=== PATIENT | male | born 1935 | race Caucasian/White ===

== ENCOUNTER → 2018-01-29 15:54 | Outpatient (CLI) | payer MEDICARE, SELFPAY ==
[2018-01-29 16:02] LABS: Bacteria Urine None Seen; WBC Urine None Seen (0-5/HPF)
[2018-01-29 16:46] LABS: Appearance Urine UA CLEAR; Bilirubin Urine UA NEGATIVE (NEGATIVE); Color Urine UA YELLOW; Glucose Urine UA NEGATIVE (Normal); Ketones Urine UA NEGATIVE (NEGATIVE); Leukocyte Esterase Urine UA NEGATIVE (NEGATIVE); Nitrite Urine UA Negative (Negative); Occult Blood Urine UA NEGATIVE (Negative); Protein Urine UA NEGATIVE (Negative); Urobilinogen Urine UA 0.2 E.U./dL (0.2)
[2018-01-29 17:03] LABS: Culture Indicated Urine Cult Not Indicated; RBC Urine 0-1/HPF (0-5/HPF); Urine Comments Microscopic Normal
== END ==
PROVIDERS: PCP Physician Assistant; Visit Provider Physician Assistant
DX: R35.0 Frequency of micturition (principal)
CPT/HCPCS: 81001

== ENCOUNTER → 2018-08-22 15:07 | Outpatient (CLI) | payer MEDICARE, SELFPAY ==
--- NOTE | 2018-08-22 | DI.ECHO.S_ITS ---
[facility] +---------+ : : [address] : [address] [place] : : : : [id number] : : : : Phone: [phone]+ Echocardiogram Report + + :Name: ANNA LOVELACE Study Date: 08/22/2018 Height: 70 in : :[facility] Exam Location: [facility] Weight: 162 lb : : Gender: Male BSA: 1.9 m2 : :: 1935 Age: 83 yrs BP: 122/62 mmHg: :Reason For Study: Atrial Fibrillation : : Performed By: April Shepard : :Referring: PHOENIX VENTURA : + + Interpretation Summary Left ventricular systolic function is normal without focal wall motion abnormalities with the ejection fraction grossly estimated to be 55-65% with considerable vill-tp-xyez variability because of his atrial fibrillation but grossly appears unchanged compared to the previous study. There is mild concentric left ventricular hypertrophy that is slightly progressive compared to the previous study. The right ventricle is moderate to severely dilated and right ventricular systolic function is mild to moderately reduced. The right ventricle appears considerably larger and less dynamic compared to the previous study. The right ventricular systolic pressure is estimated to be at least 26 mmHg based on an estimated right atrial pressure of 3 mm Hg, and is likely unchanged compared to the previous study. Both atria are severely dilated but are unchanged compared to the previous study.The interatrial septum appears intact although there is a very small jet of disturbed flow on the right atrial side, suggesting a possible patent foramen ovale but this appears unchanged from the previous study. There is mild to moderate mitral regurgitation and mild to moderate aortic regurgitation that are unchanged compared to the previous study. There is moderate tricuspid regurgitation that is appears slightly more prominent compared to the previous study. The aortic root and ascending aorta are mildly enlarged. The aortic arch is at the upper limits of normal in size. The patient was in atrial fibrillation with heart rates between 72-104 bpm during the exam which is new compared to the previous study. Procedure: A two-dimensional transthoracic echocardiogram with color flow and Doppler was performed. The study quality was technically good. Comparison is made with the echocardiogram of 09/23/2013. The patient was in atrial fibrillation with heart rates between 72-104 bpm during the exam. This is new compared to the previous study. Left Ventricle: The left ventricle is normal in size. There is mild concentric left ventricular hypertrophy. This is slightly progressive compared to the previous study. Left ventricular systolic function is normal without focal wall motion abnormalities. Left ventricular ejection fraction is estimated to be 55-65% with considerable sibt-nw-owoj variability because of his atrial fibrillation. This is grossly appears unchanged compared to the previous study. Diastolic function could not be accurately assessed due to atrial fibrillation. Right Ventricle: The right ventricle is moderate to severely dilated. A moderator band is seen in the right ventricle. Right ventricular systolic function is mild to moderately reduced. This is and appears considerably larger and less dynamic compared to the previous study. Atria: Both atria are severely dilated. This is unchanged compared to the previous study. The intra-atrial septum appears intact although there is a very small jet of this to flow on the right atrial side, suggesting a possible patent foramen ovale but this appears unchanged from the previous study. Mitral Valve: The mitral valve leaflets appear moderately thickened, but open well. There is a flat closure plane of the the mitral valve leaflets. There is mild to moderate mitral regurgitation. This is unchanged compared to the previous study. Aortic Valve: The aortic valve is trileaflet. The aortic valve is slightly calcified. The aortic valve opens well. There is mild to moderate aortic regurgitation. This is unchanged compared to the previous study. Tricuspid Valve: The tricuspid annulus is dilated. The tricuspid valve leaflets are thin and pliable. There is moderate tricuspid regurgitation. This is appears slightly more prominent compared to the previous study. The right ventricular systolic pressure is estimated to be at least 26 mmHg based on an estimated right atrial pressure of 3 mm Hg. This is unchanged compared to the previous study. Pulmonic Valve: The pulmonic valve is not well seen, but is grossly normal. There is a trace or physiologic amount of pulmonic regurgitation. Great Vessels: The aortic root is mildly dilated. The ascending aorta is mildly enlarged. The aortic arch is at the upper limits of normal in size. The IVC is of normal diameter and collapses greater than 50% with a sniff. This suggests a low right atrial pressure of 3 mm Hg. Pericardium/ Pleura There is no pericardial effusion. There is no pleural effusion. MMode/2D Measurements & Calculations LVIDd: 4.4 cm LVOT diam: 2.1 cm LVIDs: 2.7 cm Ao root diam: 3.7 cm FS: 37.8 % asc Aorta Diam: 3.7 cm IVSd: 1.1 cm Ao Arch Diam (Prox Trans): 3.0 cm LVPWd: 1.3 cm LV pichardo. diameter/BSA (cm/m^2): 2.3 LV sys. diameter/BSA (cm/m^2): 1.4 LA A2 area: 27.1 cm2 RA long axis: 5.8 cm LA A4 area: 25.6 cm2 RA area: 28.1 cm2 LA length (vol): 5.8 cm RA vol: 115.9 ml LA vol: 101.5 ml RA : 60.7 ml/m2 LA vol index: 53.2 ml/m2 TAPSE: 2.4 cm Doppler Measurements & Calculations Ao V2 max: 84.6 cm/sec LVOT Max Robi: 64.1 cm/sec Ao V2 mean: 61.8 cm/sec LV V1 max P.7 mmHg Ao max P.9 mmHg LV V1 VTI: 9.5 cm Ao mean P.6 mmHg JAYLEN(I,D): 2.7 cm2 Ao V2 VTI: 12.6 cm JAYLEN(V,D): 2.7 cm2 sev ratio: 0.76 JAYLEN indexed to BSA (cm^2/m^2): 1.4 TR max robi: 238.7 cm/sec SV(LVOT): 34.2 ml TR max P.8 mmHg PA V2 max: 68.0 cm/sec PA V2 mean: 41.8 cm/sec PA mean P.82 mmHg PA pr(Accel): 32.4 mmHg Reading Physician:PM
--- NOTE | 2018-08-22 | DI.RAD.S_ITS ---
PROCEDURE: XR LUMBAR SPINE 2-3V INDICATIONS: LOW BACK PAIN TECHNIQUE: 3 views of the lumbar spine were acquired. COMPARISON: None. FINDINGS: Bones: 5 dge-lgw-rhikprp vertebrae are present. Mild levoscoliosis. There is grade 1-2 anterolisthesis of L5 on S1 secondary to pars defects. No vertebral body compression fractures. No suspicious bony lesions. There is degenerative disc changes, moderate at L2-L3, L3-L4 and L5-S1, mild at L1-L2 and L5-L5. There is moderate to severe facet arthropathy at L4-L5. Soft tissues: Overlying bowel gas pattern is normal. No suspicious soft tissue calcifications. IMPRESSION: 1. 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 2. Degenerative disc and facet disease in lumbar spine. 3. Mild levoscoliosis. Dictated by: Kiara Tompkins M.D. on 08/22/2018 at 17:34 Approved by: Kiara Tompkins M.D. on 08/22/2018 at 17:39
== END ==
PROVIDERS: PCP Physician Assistant; Visit Provider Physician Assistant
DX: I48.1 Persistent atrial fibrillation (principal); I08.3 Combined rheumatic disorders of mitral, aortic and tricuspid valves; M54.5 Low back pain; M47.26 Other spondylosis with radiculopathy, lumbar region; M47.27 Other spondylosis with radiculopathy, lumbosacral region; M43.17 Spondylolisthesis, lumbosacral region; M41.86 Other forms of scoliosis, lumbar region
CPT/HCPCS: 72100; 93306

== ENCOUNTER 2019-01-01 15:15 | Outpatient (RCR) | payer MEDICARE, SELFPAY ==
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
--- NOTE | 2018-10-28 14:23 | PT.OPPOC ---
Current Diagnoses Low back pain (10/28/18) Difficulty in walking, not elsewhere classified (10/28/18) Abnormal posture (10/28/18) Weakness (10/28/18) Provider Visit Care Team Role Provider Type Moira Roland PA-C Attending Provider Advanced Barrel Bung Remover And Dumper Primary Care Provider Specialty: Internal Medicine Address: [address] [place] [address], [facility] Email: Plan Of Care PT-OP-T Assessment and Plan Start: 10/28/18 08:09 Freq: Status: Active Protocol: Document 10/28/18 13:01 [facility] (Rec: 10/28/18 14:22 [facility] [id number]) Physical Therapy Assessment Rehab Potential Rehabilitation Potential Good Evaluation Complexity Number of Personal Factors/Comorbidities 1-2 Number of Body Systems Impaired 4 or More Clinical Presentation at Evaluation Stable Impairments Impairments Activity Tolerance Balance Functional Activities Functional Mobility Gait Pain Posture ROM Soft Tissue Mobility Strength Goals posture Watch Hairspring Assembler Goal (LTG) Pt will present with good posture w/o cueing. LTG Duration 12/28/18 strength Short Term Goal (STG) Pt will be indep with HEP STG Duration 11/27/18 Watch Hairspring Assembler Goal (LTG) Pt will have 4/5 LPM, EFT & VCT & 5/5 LE strength B to show improved stability in order to do typical daily activiities. LTG Duration 12/28/18 functional activity Short Term Goal (STG) Pt will demonstrate improved sleep posture. STG Duration 11/27/18 Watch Hairspring Assembler Goal (LTG) pt will have no issues with sleeping or typical daily activities with no greater than 3/10 pain. LTG Duration 12/28/18 Assessment Summary Assessment Pt presents w/ R sided lumbar pain w/ radicular RLE pain likely d/t degenerative changes in spine. He has impaired posture, dec LE strength, impaired core initiation & engagement, impaired gait and dec functional ability. he would benefit from skilled PT in order to improve these and dec pain. Physical Therapy Plan Frequency and Duration Frequency of Treatment 1x/Week Duration of Treatment 2 months Plan of Care Start Date 10/28/18 Plan of Care End Date 12/28/18 Therapeutic Interventions Therapeutic Interventions Aquatic Therapy Balance Training Gait Training Home Exercise Program Joint Mobilizations Manual Therapy Neuromuscular Re-education Patient/Caregiver Education Self-Care/Home Management Soft Tissue Mobilization Taping Therapeutic Activities Therapeutic Exercises Next Visit Focus/Plan Next Note Type Treatment Note Next Visit Plan core stability exercises, STM to R lumbar, sleeping position edu Plan of Care Dates Plan of Care Start Date 10/28/18 Plan of Care End Date 12/28/18 Please Sign and Return: I have reviewed this Plan of Care and certify that the skilled therapy services above are required to meet the patient?s needs. Physician Signature Date Printed Name and Credentials Clinical Instructor Signature Printed Name and Credentials
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
--- NOTE | 2018-12-25 17:17 | PT.OPPOC ---
Current Diagnoses Low back pain (12/25/18) Difficulty in walking, not elsewhere classified (12/25/18) Abnormal posture (12/25/18) Weakness (12/25/18) Provider Visit Care Team Role Provider Type Moira Roland PA-C Attending Provider Advanced Horologist Primary Care Provider Specialty: Internal Medicine Address: [address] [place] [address], [id number] Email: Plan Of Care PT-OP-T Assessment and Plan Start: 10/28/18 08:09 Freq: Status: Active Protocol: Document 12/25/18 14:30 HH (Rec: 12/25/18 17:17 HH [email or web address]) Physical Therapy Assessment Goals single leg balance Short Term Goal (STG) pt will demonstrate improve dynamic core stability and strength to be able to stand on one leg >10 secs. STG Duration 2 weeks lifting mechanics Short Term Goal (STG) Pt will demonstrates safe and proper lifting mechanics for objects >20 lbs without LBP STG Duration 2 weeks strength Short Term Goal (STG) Pt is ind with hep goal met functional activity Short Term Goal (STG) goal met: pain free during sleep Progress Towards Goals Progress Towards Goals Progressing Toward Goals Assessment Summary Assessment Pt has shown good rehab progress without increase in back recently. He was able to stand longer and showed increased activity tolerance. However, there's cont noticeable limited hamstring flexibility and poor lifting mechanics. pt will cont require skilled therapy for 2 more weeks for lifting training and stability training. Physical Therapy Plan Frequency and Duration Frequency of Treatment 1x/Week Duration of Treatment 2 weeks Plan of Care Start Date 12/25/18 Plan of Care End Date 01/10/19 Therapeutic Interventions Therapeutic Interventions Aquatic Therapy Balance Training Gait Training Home Exercise Program Joint Mobilizations Manual Therapy Neuromuscular Re-education Patient/Caregiver Education Self-Care/Home Management Soft Tissue Mobilization Taping Therapeutic Activities Therapeutic Exercises Next Visit Focus/Plan Next Note Type Treatment Note Next Visit Plan core stability exercises, back ext strengthening graded exposure for picking up heavy objects hamstring mobility Plan of Care Dates Plan of Care Start Date 12/25/18 Plan of Care End Date 01/10/19 Please Sign and Return: I have reviewed this Plan of Care and certify that the skilled therapy services above are required to meet the patient?s needs. Physician Signature Date Printed Name and Credentials Clinical Instructor Signature Printed Name and Credentials
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
== END 2019-01-08 12:42 | disposition home or self-care (01) ==
LOC: PHYS 15:15
PROVIDERS: PCP Physician Assistant; Visit Provider Physician Assistant
DX: M54.5 Low back pain (principal); R26.2 Difficulty in walking, not elsewhere classified; R53.1 Weakness; R29.3 Abnormal posture
CPT/HCPCS: 97110; 97140; 97161; 97164; 97535

== ENCOUNTER → 2019-02-04 11:58 | Outpatient (CLI) | payer MEDICARE, SELFPAY ==
[2019-02-04 12:27] LABS: Add Manual Diff / Slide Review NO; Basophils Absolute Auto 100 /uL (0-100); Basophils Percent Auto 0.9 % (0-2); Eosinophils Absolute Auto 200 /uL (0-450); Eosinophils Percent Auto 2.2 % (2-4); Lymphocytes Absolute Auto 3900 /uL (1100-4500); Lymphocytes Percent Auto 48.1 % (25-40); Mean Corpuscular HGB Conc 33.4 % (30-36); Mean Corpuscular Hemoglobin 32.9 PG (26-34); Mean Corpuscular Volume 98.6 fL (80-100); Monocytes Absolute Auto 800 /uL (0-900); Monocytes Percent Auto 9.7 % (3-14); Neutrophils Absolute Auto 3100 /uL (1500-7000); Neutrophils Percent Auto 39.1 % (50-75); Platelet Count 171 X10^3/uL (150-400); Red Blood Cell Count 4.57 X10^6/uL (4.5-5.9); Red Cell Distribution Width 14.4 % (11.6-14.8)
[2019-02-04 12:47] LABS: Blood Urea Nitrogen 19 mg/dL (9-20); Calcium 9.6 mg/dL (8.4-10.2); Carbon Dioxide 28 mmol/L (22-32); Chloride 102 mmol/L (98-107); Estimated Glomerular Filt Rate > 60.0 mL/min (>60); Glucose 102 mg/dL (80-110); HEMOLYSIS < 15 (0-50); Potassium 4.7 mmol/L (3.4-5.1); Sodium 140 mmol/L (137-145)
== END ==
PROVIDERS: PCP Physician Assistant; Visit Provider Internal Medicine Cardiovascular Disease
DX: I48.1 Persistent atrial fibrillation (principal)
CPT/HCPCS: 36415; 80048; 85025

== ENCOUNTER 2020-01-24 13:40 | Observation (INO) | payer MEDICARE, SELFPAY ==
[2020-01-24] VITALS (13 sets, daily range): BP systolic 96–119; BP diastolic 55–78; PULSE 94–133; RESP 15–26; TEMP 36.1–38.1; O2SAT 92–98; BMI 21.5
--- NOTE | 2020-01-24 15:00 | DI.RAD.S_ITS ---
PROCEDURE: XR CHEST 1V INDICATIONS: fever, tachycardia TECHNIQUE: One view of the chest was acquired. COMPARISON: None. FINDINGS: Surgical changes and devices: None. Lungs and pleura: Lungs are clear. No pleural effusions or pneumothorax. Mediastinum: The cardiac contours are within normal limits. The aorta demonstrates calcification and tortuosity. Bones and chest wall: No suspicious bony lesions. Overlying soft tissues appear unremarkable. Age-appropriate bony degenerative changes are seen. IMPRESSION: Unremarkable portable chest for age. Dictated by: Edwin Mir M.D. on 01/24/2020 at 15:25 Approved by: Edwin Mir M.D. on 01/24/2020 at 15:25
[2020-01-24 15:46] LABS: Add Manual Diff / Slide Review NO; Basophils Absolute Auto 0 /uL (0-100); Basophils Percent Auto 0.4 % (0-2); Eosinophils Absolute Auto 0 /uL (0-450); Hematocrit 42.8 % (41-53); Hemoglobin 14.5 g/dL (13.5-17.5); Lymphocytes Absolute Auto 800 /uL (1100-4500); Lymphocytes Percent Auto 6.2 % (25-40); Mean Corpuscular HGB Conc 33.8 % (30-36); Mean Corpuscular Hemoglobin 33.5 PG (26-34); Mean Corpuscular Volume 98.9 fL (80-100); Monocytes Absolute Auto 1600 /uL (0-900); Monocytes Percent Auto 12.8 % (3-14); Neutrophils Absolute Auto 10300 /uL (1500-7000); Neutrophils Percent Auto 80.6 % (50-75); Platelet Count 141 X10^3/uL (150-400); Red Blood Cell Count 4.33 X10^6/uL (4.5-5.9); Red Cell Distribution Width 13.7 % (11.6-14.8); White Blood Cell Count 12.8 X10^3/uL (4.5-11.0)
--- NOTE | 2020-01-24 15:52 | ED.GENADULT ---
HPI - General Adult General Chief complaint: Fever Stated complaint: Fever, chills, nausea Time Seen by Provider: 01/24/20 14:59 Source: patient Mode of arrival: Ambulatory Limitations: no limitations History of Present Illness HPI narrative: 84-year-old otherwise healthy gentleman presents with 24 hours of rigors chills and fevers as high as 103. Has no localizing symptoms to explain his fevers. He had a single episode of emesis earlier today but no cough, sore throat, head or sinus fullness, abdominal pain, flank pain, dysuria, skin changes or other findings and no joint pain or tenderness. Similarly he has had no chest pain, dyspnea, orthopnea or palpitations. Related Data Allergies Allergy/AdvReac Type Severity Reaction Status Date / Time No Known Drug Allergies Allergy Verified 01/24/20 14:32 Review of Systems Review of Systems Narrative: Pertinent positive and negative findings as per HPI Remainder of review of systems is otherwise unremarkable for Constitutional: Fevers, chills, weakness ENT: No sore throat, neck pain, ear pain CV: Chest pain, palpitations, dyspnea on exertion Respiratory: Cough, wheeze, dyspnea GI: Nausea, vomiting, diarrhea, change in bowel habits, black or bloody stools : Dysuria, hematuria, flank pain MS: Muscle weakness, numbness, joint swelling or warmth Skin: Rashes, nonhealing lesions Neuro: Syncope, dizziness, tingling Psych: Depression, anxiety, suicidal ideation Patient History Social History Smoking Status: Never smoker Smoking Status: Never smoker alcohol intake frequency: 0-2 drinks per day Substance Use Type: does not use Exam Narrative Exam Narrative: General: Healthy appearing, in no acute distress. Able to give a complete and coherent history. Well-nourished well-developed HEENT: Moist mucous membranes, normal sclera with reactive pupils, Neck: supple Respiratory: Lungs are clear to auscultation, no wheezing no rales no rhonchi. Full and symmetrical air movement Cardiac: Regular rate and rhythm no murmurs no bruits Abdomen: Soft nontender good bowel tones, no flank pain Skin: Warm and dry, no rashes Neurologic: Grossly neurologically intact with no obvious asymmetries or abnormalities Extremities: No trauma, well perfused Psych: Cooperative, appropriate insight and affect Initial Vital Signs Initial Vital Signs: Vital Signs Temperature 100.6 F H 01/24/20 14:26 Pulse Rate 120 H 01/24/20 14:26 Respiratory Rate 16 01/24/20 14:26 Blood Pressure 100/57 L 01/24/20 14:26 Pulse Oximetry 97 01/24/20 14:26 Course Orders Ordered: ED Orders 01/24/20 15:00 XR chest 1V Stat 01/24/20 15:20 Blood Culture Stat Complete Blood Count AUTO DIFF Stat Comprehensive Metabolic Panel Stat Lactate (Lactic Acid) Stat Lipase Stat 01/24/20 16:02 High flow/High humidity nasal NOW 01/24/20 17:00 Urinalysis and Microscopic Stat Urine Culture Stat Sodium Chloride (Normal Saline 0.9%) 1,000 mls @ 150 mls/hr IV CONT DREW Last Admin: 01/24/20 17:16 Dose: 150 mls/hr Documented by: MAY Discontinued Medications Acetaminophen (Tylenol) 975 mg PO NOW ONE Stop: 01/24/20 16:03 Last Admin: 01/24/20 16:16 Dose: 975 mg Documented by: MAY Sodium Chloride (Normal Saline 0.9%) 1,000 mls @ 2,000 mls/hr IV BOLUS ONE Stop: 01/24/20 16:31 Last Infusion: 01/24/20 17:16 Dose: 0 mls/hr Documented by: Admin: 01/24/20 16:17 Dose: 2,000 mls/hr Documented by: MAY Ceftriaxone Sodium/Dextrose (Rocephin) 2 gm in 50 mls @ 100 mls/hr IV NOW ONE Stop: 01/24/20 19:31 Last Admin: 01/24/20 19:23 Dose: 100 mls/hr Documented by: SAVANNA Vital Signs Vital signs: Vital Signs - 8 hr 01/24/20 14:26 01/24/20 15:09 01/24/20 16:48 Temperature 100.6 F H 96.9 F L Pulse Rate 120 H 133 H 116 H Respiratory Rate 16 21 25 H Blood Pressure 100/57 L 104/58 L Pulse Oximetry 97 92 01/24/20 17:00 01/24/20 17:18 01/24/20 17:30 Temperature Pulse Rate 105 H 106 H 108 H Respiratory Rate 17 19 16 Blood Pressure 101/58 L 119/78 Pulse Oximetry 97 97 98 01/24/20 18:00 Temperature Pulse Rate 101 H Respiratory Rate 15 Blood Pressure 96/55 L Pulse Oximetry 98 Medical Decision Making Medical Records Medical records reviewed: Yes I reviewed the patient's medical records. Lab Data Lab results reviewed: Yes I reviewed the patient's lab results. Result diagrams: 01/24/20 15:20 01/24/20 15:20 Labs: Lab Results 01/24/20 01/24/20 01/24/20 Range/Units 15:20 15:20 15:20 WBC 12.8 H (4.5-11.0) X10^3/uL RBC 4.33 L (4.5-5.9) X10^6/uL Hgb 14.5 (13.5-17.5) g/dL Hct 42.8 (41-53) % MCV 98.9 (80-100) fL MCH 33.5 (26-34) PG MCHC 33.8 (30-36) % RDW 13.7 (11.6-14.8) % Plt Count 141 L (150-400) X10^3/uL Neut % (Auto) 80.6 H (50-75) % Lymph % (Auto) 6.2 L (25-40) % [place] % (Auto) 12.8 (3-14) % Eos % (Auto) 0.0 L (2-4) % Baso % (Auto) 0.4 (0-2) % Neut # (Auto) 82912 H (1480-8011) /uL Lymph # (Auto) 800 L (8059-1394) /uL [place] # (Auto) 1600 H (0-900) /uL Eos # (Auto) 0 (0-450) /uL Baso # (Auto) 0 (0-100) /uL Sodium 134 L (137-145) mmol/L Potassium 4.3 (3.4-5.1) mmol/L Chloride 104 (98-107) mmol/L Carbon Dioxide 24 (22-32) mmol/L BUN 22 H (9-20) mg/dL Creatinine 0.95 (0.66-1.25) mg/dL Estimated GFR > 60.0 (>60) mL/min BUN/Creatinine Ratio 23.2 H (6-22) Glucose 106 (80-110) mg/dL Lactate 1.1 (0.7-2.1) mmol/L Calcium 9.1 (8.4-10.2) mg/dL Total Bilirubin 2.6 H (0.2-1.3) mg/dL AST 35 (17-59) IU/L ALT 20 (<50) IU/L Alkaline Phosphatase 95 (38-126) U/L Total Protein 6.9 (6.3-8.2) g/dL Albumin 4.2 (3.5-5.0) g/dL Globulin 2.7 (1.7-4.1) g/dL Albumin/Globulin Ratio 1.6 (1.0-2.8) Lipase 38 (23-300) U/L Urine Color Urine Appearance Urine pH (4.5-8.0) Ur Specific [place] (1.000-1.035) Urine Protein (Negative) Urine Glucose (UA) (Negative) g/dL Urine Ketones (NEGATIVE) Urine Occult Blood (Negative) Urine Nitrate (Negative) Urine Bilirubin (NEGATIVE) Urine Urobilinogen (0.2) E.U./dL Ur Leukocyte Esterase (NEGATIVE) Urine RBC (0-5/HPF) Urine WBC (0-5/HPF) Ur Squamous Epith Cells (0-5/HPF) Urine Bacteria (None) Ur Culture Indicated? COVID-19 PCR (Negative) 01/24/20 01/24/20 Range/Units 16:20 17:00 WBC (4.5-11.0) X10^3/uL RBC (4.5-5.9) X10^6/uL Hgb (13.5-17.5) g/dL Hct (41-53) % MCV (80-100) fL MCH (26-34) PG MCHC (30-36) % RDW (11.6-14.8) % Plt Count (150-400) X10^3/uL Neut % (Auto) (50-75) % Lymph % (Auto) (25-40) % [place] % (Auto) (3-14) % Eos % (Auto) (2-4) % Baso % (Auto) (0-2) % Neut # (Auto) (2769-3888) /uL Lymph # (Auto) (3840-3347) /uL [place] # (Auto) (0-900) /uL Eos # (Auto) (0-450) /uL Baso # (Auto) (0-100) /uL Sodium (137-145) mmol/L Potassium (3.4-5.1) mmol/L Chloride (98-107) mmol/L Carbon Dioxide (22-32) mmol/L BUN (9-20) mg/dL Creatinine (0.66-1.25) mg/dL Estimated GFR (>60) mL/min BUN/Creatinine Ratio (6-22) Glucose (80-110) mg/dL Lactate (0.7-2.1) mmol/L Calcium (8.4-10.2) mg/dL Total Bilirubin (0.2-1.3) mg/dL AST (17-59) IU/L ALT (<50) IU/L Alkaline Phosphatase (38-126) U/L Total Protein (6.3-8.2) g/dL Albumin (3.5-5.0) g/dL Globulin (1.7-4.1) g/dL Albumin/Globulin Ratio (1.0-2.8) Lipase (23-300) U/L Urine Color Yellow Urine Appearance Clear Urine pH 6.0 (4.5-8.0) Ur Specific [place] 1.020 (1.000-1.035) Urine Protein 1+ H (Negative) Urine Glucose (UA) Negative (Negative) g/dL Urine Ketones Trace H (NEGATIVE) Urine Occult Blood 3+ H (Negative) Urine Nitrate Positive (Negative) Urine Bilirubin Negative (NEGATIVE) Urine Urobilinogen 0.2 (0.2) E.U./dL Ur Leukocyte Esterase 1+ H (NEGATIVE) Urine RBC 10-30/hpf H (0-5/HPF) Urine WBC 10-30/hpf H (0-5/HPF) Ur Squamous Epith Cells 0-1 /hpf (0-5/HPF) Urine Bacteria Many (>30) H (None) Ur Culture Indicated? Specimen cultured COVID-19 PCR Negative (Negative) Imaging Data Chest x-ray: Radiologist's Impression: IMPRESSION: Unremarkable portable chest for age. Dictated by: Edwin Mir M.D. on 01/24/2020 at 15:25 MDM Narrative Medical decision making narrative: 84-year-old otherwise healthy gentleman presents with 24 hours of rigors chills and fevers as high as 103. Mild leukocytosis, moderately low blood pressure(although he states this is normal for him) tachycardia and urine that certainly looks like a bladder infection causing his symptoms. In the emergency room with concerns for sepsis entertained he was given 2 L of fluid and fluids continued 150 cc an hour. IV ceftriaxone is given after blood cultures and urine has been obtained. Case is reviewed with Dr. Escamilla, admitting hospitalist this evening. Patient will be admitted. Initial lactic acid is unremarkable however with rigors and chills at 84 IV antibiotics until he clearly is improving seems prudent. Discharge Plan Departure Patient Disposition: Admitted as Observation Clinical Impression: Rigor Urinary tract infection Qualifiers: Urinary tract infection type: acute cystitis Hematuria presence: without hematuria Qualified Code(s): N30.00 - Acute cystitis without hematuria Referrals: Moira Roland PA-C [Primary Care Provider] -
[2020-01-24 15:54] LABS: Alanine Aminotransferase 20 IU/L (<50); Albumin 4.2 g/dL (3.5-5.0); Albumin Globulin Ratio 1.6 (1.0-2.8); Alkaline Phosphatase 95 U/L (38-126); Aspartate Aminotransferase 35 IU/L (17-59); BUN Creatinine Ratio 23.2 (6-22); Bilirubin Total 2.6 mg/dL (0.2-1.3); Blood Urea Nitrogen 22 mg/dL (9-20); Calcium 9.1 mg/dL (8.4-10.2); Carbon Dioxide 24 mmol/L (22-32); Chloride 104 mmol/L (98-107); Estimated Glomerular Filt Rate > 60.0 mL/min (>60); Globulin 2.7 g/dL (1.7-4.1); Glucose 106 mg/dL (80-110); HEMOLYSIS < 15 (0-50); Lactate (Lactic Acid) 1.1 mmol/L (0.7-2.1); Lipase 38 U/L (23-300); Potassium 4.3 mmol/L (3.4-5.1); Sodium 134 mmol/L (137-145); Total Protein 6.9 g/dL (6.3-8.2)
[2020-01-24] MEDS: ACETAMINOPHEN 325 MG TABLET 975 MG PO (16:16)
[2020-01-24] MEDS: SODIUM CHLORIDE 0.9% 1,000 ML 2000 ML IV (16:17)
[2020-01-24] MEDS: SODIUM CHLORIDE 0.9% 1,000 ML 150 ML IV (17:16)
[2020-01-24 17:31] LABS: Appearance Urine UA CLEAR; Bilirubin Urine UA NEGATIVE (NEGATIVE); Color Urine UA YELLOW; Glucose Urine UA NEGATIVE (Negative); Ketones Urine UA TRACE (NEGATIVE); Leukocyte Esterase Urine UA 1+ (NEGATIVE); Nitrite Urine UA POSITIVE (Negative); Occult Blood Urine UA 3+ (Negative); Protein Urine UA 1+ (Negative); Urobilinogen Urine UA 0.2 E.U./dL (0.2)
[2020-01-24 17:53] LABS: Bacteria Urine Many (>30); Culture Indicated Urine Specimen Cultured; RBC Urine 10-30/HPF (0-5/HPF); Squamous Epithelial Cell Urine 0-1 /HPF (0-5/HPF); WBC Urine 10-30/HPF (0-5/HPF)
[2020-01-24 18:26] LABS: COVID19 -Nasal RAPID Negative (Negative)
--- NOTE | 2020-01-24 18:28 | PC.NURSE ---
provider ok'd pt for general diet. pt given sandwich and juice per request.
[2020-01-24] MEDS: CEFTRIAXONE 2 GM/50 ML FROZ.PIGGY IV (19:23)
--- NOTE | 2020-01-24 20:57 | PM.HP.1 ---
History of Present Illness History of Present Illness Date Patient Seen: 01/24/20 Time Patient Seen: 20:57 Chief complaint: Fever, chills, nausea Narrative: This is an 84 year old male with onset last night of a fever of 100.6, rigors and chills. His UA is abnormal and his Covid test is negative. He will be admitted to observation for initiation of IV antibiotics. The UA shows 10-30 RBC, 10-30 WBC, 3+ blood and positive nitrate. In addition his white blood count is 12.8 with a lactic acid of 1.1 and a bilirubin of 2.6. His previous bilirubins have been 1.5 and 0.9. He drinks 1 beer daily along with a shot of whiskey most evenings. He has no history of prostate hypertrophy, urinary tract infection, kidney infection, liver disease, pneumonias. He gets up only 1 time at night to urinate. He has no recent exposures to Covid. 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 Patient History Medical History Acetabular fracture (Acute) Afib (Acute) Daily consumption of alcohol (Acute) Surgical History (Updated 01/24/20 @ 22:16 by Sheree Escamilla MD) H/O pelvic surgery (Acute) Family & Social History Family History (Updated 01/24/20 @ 22:17 by Sheree Escamilla MD) Father Liver disease Goiter Dementia Mother Heart disease Social History: His backup decision maker is his girlfriend Rosa Ron Safety & Behavioral: Feels Safe in Current Yes Environment Been Physically Hurt or No Threatened By a Person Tobacco & Substance use: Smoking Status Former smoker alcohol intake frequency 0-2 drinks per day Substance Use Type does not use Meds Home Medications and Allergies Home Medications Medication Instructions Recorded Confirmed Type acetaminophen [Tylenol Extra 1,000 mg PO BEDTIME 01/24/20 01/24/20 History Strength] apixaban [Eliquis] 5 mg PO BID 01/24/20 01/24/20 History Allergies Allergy/AdvReac Type Severity Reaction Status Date / Time No Known Drug Allergies Allergy Verified 01/24/20 14:32 Review of Systems Review of Systems Narrative: Positive for fevers, chills, rigors Negative for nausea, vomiting, abdominal pain, chest pain, coughing, headaches, seizures, rashes, joint pain, difficulty talking, difficulty walking, new allergies, bleeding, dysuria, nocturia. ROS: Yes All systems reviewed with the patient and are negative except as otherwise documented Exam Vital Signs (past 8 hours): - 01/24/20 14:26 01/24/20 15:09 01/24/20 16:48 Temperature 100.6 F H 96.9 F L Pulse Rate 120 H 133 H 116 H Respiratory Rate 16 21 25 H Blood Pressure 100/57 L 104/58 L Pulse Oximetry 97 92 01/24/20 17:00 01/24/20 17:18 01/24/20 17:30 Temperature Pulse Rate 105 H 106 H 108 H Respiratory Rate 17 19 16 Blood Pressure 101/58 L 119/78 Pulse Oximetry 97 97 98 01/24/20 18:00 01/24/20 18:30 01/24/20 19:00 Temperature Pulse Rate 101 H 99 H 105 H Respiratory Rate 15 25 H 26 H Blood Pressure 96/55 L 108/63 99/63 Pulse Oximetry 98 98 97 01/24/20 19:30 01/24/20 20:00 Temperature Pulse Rate 94 H 118 H Respiratory Rate 15 23 Blood Pressure 97/62 104/64 Pulse Oximetry 97 98 Oxygen Delivery Method Room Air Narrative Exam Narrative: Alert and oriented x3. No apparent distress. He easily remembers our prior interactions/socialization and updates me on his current life. Sclera pink and nonicteric Extraocular muscles intact Pupils equally round reactive to light and accommodation Throat looks normal JVD is less than 6 cm No carotid bruits are heard JVD is less than 6 cm Heart is irregularly irregular without murmur Lungs are clear to auscultation bilaterally Abdomen is soft, bowel sounds positive, no organomegaly, he is tender over the bladder. Extremities have no ankle edema Skin has no rash or jaundice Neurological exam Cranial nerves 2-12 test intact There is no tremor Reflexes are normal Motor function is 5/5 throughout Objective Labs Result Diagrams: 01/24/20 15:20 01/24/20 15:20 Labs: Laboratory Results - last 24 hr 01/24/20 01/24/20 01/24/20 15:20 15:20 15:20 WBC 12.8 H RBC 4.33 L Hgb 14.5 Hct 42.8 MCV 98.9 MCH 33.5 MCHC 33.8 RDW 13.7 Plt Count 141 L Neut % (Auto) 80.6 H Lymph % (Auto) 6.2 L [place] % (Auto) 12.8 Eos % (Auto) 0.0 L Baso % (Auto) 0.4 Neut # (Auto) 81200 H Lymph # (Auto) 800 L [place] # (Auto) 1600 H Eos # (Auto) 0 Baso # (Auto) 0 Sodium 134 L Potassium 4.3 Chloride 104 Carbon Dioxide 24 BUN 22 H Creatinine 0.95 Estimated GFR > 60.0 BUN/Creatinine Ratio 23.2 H Glucose 106 Lactate 1.1 Calcium 9.1 Total Bilirubin 2.6 H AST 35 ALT 20 Alkaline Phosphatase 95 Total Protein 6.9 Albumin 4.2 Globulin 2.7 Albumin/Globulin Ratio 1.6 Lipase 38 Urine Color Urine Appearance Urine pH Ur Specific [place] Urine Protein Urine Glucose (UA) Urine Ketones Urine Occult Blood Urine Nitrate Urine Bilirubin Urine Urobilinogen Ur Leukocyte Esterase Urine RBC Urine WBC Ur Squamous Epith Cells Urine Bacteria Ur Culture Indicated? COVID-19 PCR 01/24/20 01/24/20 16:20 17:00 WBC RBC Hgb Hct MCV MCH MCHC RDW Plt Count Neut % (Auto) Lymph % (Auto) [place] % (Auto) Eos % (Auto) Baso % (Auto) Neut # (Auto) Lymph # (Auto) [place] # (Auto) Eos # (Auto) Baso # (Auto) Sodium Potassium Chloride Carbon Dioxide BUN Creatinine Estimated GFR BUN/Creatinine Ratio Glucose Lactate Calcium Total Bilirubin AST ALT Alkaline Phosphatase Total Protein Albumin Globulin Albumin/Globulin Ratio Lipase Urine Color Yellow Urine Appearance Clear Urine pH 6.0 Ur Specific [place] 1.020 Urine Protein 1+ H Urine Glucose (UA) Negative Urine Ketones Trace H Urine Occult Blood 3+ H Urine Nitrate Positive Urine Bilirubin Negative Urine Urobilinogen 0.2 Ur Leukocyte Esterase 1+ H Urine RBC 10-30/hpf H Urine WBC 10-30/hpf H Ur Squamous Epith Cells 0-1 /hpf Urine Bacteria Many (>30) H Ur Culture Indicated? Specimen cultured COVID-19 PCR Negative Assessment & Plan Assessment & Plan narrative: Urinary tract infection -blood cultures and urine cultures pending -UA on admission with 10-30 WBCs, positive blood, positive nitrate -ceftriaxone IV with transition to oral antibiotics and probable discharge home 01/24 -IV fluid normal saline with dextrose overnight -admit to observation due to age, 1st episode urinary tract infection, need for prompt abdominal ultrasound to evaluate for pyelonephritis/bladder outlet obstruction Chronic atrial fibrillation -continue Eliquis Hyperbilirubinemia -bilirubin of 2.6 with previous elevation of 1.5 noted, suggestive of Gilbert's disease -daily minimal alcohol use but normal liver function tests other than bilirubin -abdominal ultrasound ordered for possible pyelonephritis will also look at his liver.
[2020-01-24] MEDS: DEXTROSE 5%-0.9% NS 1,000 ML 75 ML IV (22:12)
[2020-01-24] MEDS: APIXABAN 5 MG TABLET PO (22:12)
[2020-01-24] MEDS: ACETAMINOPHEN 325 MG TABLET 650 MG PO (22:19)
--- NOTE | 2020-01-24 23:46 | PC.NURSE ---
Pt to room 208 from E.R. via stretcher awake, alert, conversant. Denies pain. Temp 100.1 and was given tylenol to manage. Ultrasound per Milka to be done @ 0900 Sunday. Pt may have water and black coffee only 4 hours prior to exam. NOC RN, Ashley informed. BL calf scd's in place and telemetry in place as ordered. Clarified with Dr. Francine painter to be given tomorrow as pt has had 2 mg rocephin in E.R. this evening shift. Bed alarm set and pt was instructed not to attempt OOB without assistance.
[2020-01-25 00:15] VITALS: BP 107/62; PULSE 100; RESP 18; TEMP 37.7; O2SAT 94
[2020-01-25 00:58] VITALS: TEMP 37.7
[2020-01-25 05:00] VITALS: BP 98/53; PULSE 96; RESP 18; TEMP 37.2; O2SAT 96
[2020-01-25 05:34] LABS: Add Manual Diff / Slide Review NO; Basophils Absolute Auto 100 /uL (0-100); Basophils Percent Auto 0.6 % (0-2); Eosinophils Absolute Auto 0 /uL (0-450); Eosinophils Percent Auto 0.2 % (2-4); Hematocrit 39.8 % (41-53); Hemoglobin 13.1 g/dL (13.5-17.5); Lymphocytes Absolute Auto 1700 /uL (1100-4500); Lymphocytes Percent Auto 12.3 % (25-40); Mean Corpuscular Hemoglobin 32.8 PG (26-34); Mean Corpuscular Volume 99.6 fL (80-100); Monocytes Absolute Auto 1600 /uL (0-900); Monocytes Percent Auto 11.3 % (3-14); Neutrophils Absolute Auto 10600 /uL (1500-7000); Neutrophils Percent Auto 75.6 % (50-75); Platelet Count 121 X10^3/uL (150-400); Red Cell Distribution Width 13.5 % (11.6-14.8)
[2020-01-25 05:43] LABS: BUN Creatinine Ratio 20.6 (6-22); Blood Urea Nitrogen 21 mg/dL (9-20); Calcium 8.7 mg/dL (8.4-10.2); Carbon Dioxide 26 mmol/L (22-32); Chloride 106 mmol/L (98-107); Estimated Glomerular Filt Rate > 60.0 mL/min (>60); Glucose 114 mg/dL (80-110); HEMOLYSIS < 15 (0-50); Potassium 4.8 mmol/L (3.4-5.1); Sodium 136 mmol/L (137-145)
[2020-01-25 07:00] VITALS: BP 100/68; PULSE 100; RESP 15; TEMP 37.1; O2SAT 99
[2020-01-25] MEDS: APIXABAN 5 MG TABLET PO (09:56)
[2020-01-25] MEDS: SODIUM CHLORIDE 0.9% FLUSH 10 ML IV (09:56)
--- NOTE | 2020-01-25 10:31 | CM.DANOTE ---
DCP: Case received, EMR reviewed and met with patient. Introduced self and role. Was able to obtain information from patient regarding his baseline activity status and living situation. DCP assessment completed with information currently available. Patient is an 84 year old male who admitted yesterday evening to the care of the hospitalist team. PCP: Moira BENSON at [facility]. Payer: confirmed: [employer]. Patient came to the hospital via private vehicle secondary to fever, malaise, and chills. He holds current diagnosis of UTI/Cystitis. He was also having hematuria. During team rounds, hospitalist, Dr. Sadler, mentioned, possible stone. He will be consulting with urologist, Dr. Swain. Patient is alert and oriented, pleasant. He is independent. He stated that his a few years ago, and has a significant other, Rosa Ron, who he resides with. Patient and reside in [place]. P: DCP to continue to follow. Patient should be able to go home when stable, could potentially go today after urology consult. Dafne Oro RN/Adoption Worker
[2020-01-25 11:00] VITALS: BP 96/62; PULSE 98; RESP 16; TEMP 37.2; O2SAT 98
--- NOTE | 2020-01-25 11:45 | DI.CT.S_ITS ---
PROCEDURE: CT KIDNEY URETER BLADDER (KUB) INDICATIONS: R hydro on US, further eval of CT stone. TECHNIQUE: Noncontrast 5 mm thick sections acquired from the diaphragms to the symphysis. 5 mm thick coronal and sagittal reformats were then performed. For radiation dose reduction, the following was used: automated exposure control, adjustment of mA and/or kV according to patient size. COMPARISON: [facility], US, US ABDOMEN COMPLETE, 01/25/2020, 8:19. FINDINGS: Image quality: Excellent. Lung bases: Lung bases are clear. Heart size is normal. A small hiatal hernia is incidentally noted. Urinary system: Both kidneys are normal in size. There is confirmed a prominent stone within the collecting system of the right kidney, which is nonobstructing and measures up to 1.8 cm. There is a tiny 2 mm left-sided kidney stone seen, as on series 2, image 37. A prominent right renal pelvis can be seen. Numerous enlarged water density cysts can be seen involving the kidneys, with the largest seen at the superior pole the right kidney measuring 10 cm. No ureteral stones are seen. No hydronephrosis or perinephric fat stranding. Both ureters appear non-dilated throughout their expected courses. Bladder wall thickness is normal; no calcified bladder stones. Other solid organs: Liver is normal in size. Gallbladder is not definitely seen. Pancreas is normal in contours. Spleen is normal in size. No adrenal nodules. Peritoneum and bowel: Unenhanced bowel loops demonstrate normal wall thickness and caliber. No free fluid or air. Advanced sigmoid diverticulosis is seen, without kezia findings of active diverticulitis. Nodes and vessels: No retroperitoneal or mesenteric adenopathy by size criteria. Aorta and inferior vena cava are normal in caliber. Abdominal wall: No ventral hernias. Pelvis: No free pelvic fluid. No enlarged inguinal or pelvic lymph nodes are seen. There is a fat-containing left inguinal hernia seen. Bones: No suspicious bony lesions. Postoperative change of the left posterior acetabulum can be seen. The screw tips protrude medially into the soft tissues of the pelvis. No vertebral body compression fractures. Mild dextroconvex scoliotic curvature is seen. Grade 1 anterolisthesis is seen at the L5-S1 level. Associated bilateral L5 pars defects are seen. Degenerative changes are seen, which are most prominent involving the lower lumbar spine. IMPRESSION: There is a 1.8 cm nonobstructing stone confirmed within the collecting system of the right kidney. A tiny 2 mm nonobstructing left-sided kidney stone is also seen. A prominent right renal pelvis is seen, without a cause of obstruction observed. No kezia hydronephrosis is seen on either side. Numerous prominent renal cysts are seen, without suspicious features. Incidental note is made of: Small hiatal hernia Advanced sigmoid diverticulosis, without diverticulitis. Bilateral L5 pars defects, with associated grade 1 anterolisthesis at L5-S1. Mild dextroconvex scoliotic curvature. Postoperative change of the posterior aspect of the left acetabulum. Fat containing left inguinal hernia Dictated by: Edwin Mir M.D. on 01/25/2020 at 12:31 Approved by: Edwin Mir M.D. on 01/25/2020 at 12:36
[2020-01-25 12:05] LABS: Alanine Aminotransferase 18 IU/L (<50); Albumin 3.4 g/dL (3.5-5.0); Albumin Globulin Ratio 1.4 (1.0-2.8); Alkaline Phosphatase 66 U/L (38-126); Aspartate Aminotransferase 33 IU/L (17-59); Bilirubin Total 1.3 mg/dL (0.2-1.3); Globulin 2.5 g/dL (1.7-4.1); HEMOLYSIS 16 (0-50); Total Protein 5.9 g/dL (6.3-8.2)
[2020-01-25] MEDS: DEXTROSE 5%-0.9% NS 1,000 ML 75 ML IV (13:20)
--- NOTE | 2020-01-25 14:02 | PM.DS.1 ---
History of Present Illness History of Present Illness Date Patient Seen: 01/25/20 Time Patient Seen: 14:02 Chief complaint: Fever, chills, nausea Narrative: This is an 84 year old male with onset last night of a fever of 100.6, rigors and chills. His UA is abnormal and his Covid test is negative. He will be admitted to observation for initiation of IV antibiotics. The UA shows 10-30 RBC, 10-30 WBC, 3+ blood and positive nitrate. In addition his white blood count is 12.8 with a lactic acid of 1.1 and a bilirubin of 2.6. His previous bilirubins have been 1.5 and 0.9. He drinks 1 beer daily along with a shot of whiskey most evenings. He has no history of prostate hypertrophy, urinary tract infection, kidney infection, liver disease, pneumonias. He gets up only 1 time at night to urinate. He has no recent exposures to Covid. 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 Discharge Providers Provider Date of admission: 01/24/20 20:02 Discharge Date: 01/25/20 Primary care physician: Moira Roland PA-C Consults: 01/24/20 21:10 Consult to Dietitian, Adult Routine Comment: Reason For Exam: does not need dietary consult. Discharge provider: Ino Sadler DO Summary Hospital Course Discharge Diagnosis: Acute cystitis, present on admission bilateral nephrolithiasis, present on admission, unclear chronicity Multiple kidney cysts, unknown chronicity, present on admission. Chronic atrial fibrillation, present on admission. Hyperbilirubinemia, resolved Hospital Course: Simeon Del Cid is an 84-year-old male with past medical history of chronic atrial fibrillation who was admitted after an episode of fevers/rigors. He was found have a urinary tract infection. He was given a dose of ceftriaxone and reported much improvement the fllowing morning. Ultrasound showed the possibility right nephrolithiasis with mild hydronephrosis. Discussed with urology over the phone who recommended a CT KUB and as long as the patient continued to improve he could be discharged home with antibiotics and outpatient follow-up in the Urology Clinic. CT KUB was performed which showed multiple renal cysts, but no overt hydronephrosis. Patient endorsed a history of kidney stones in the past and kidney abnormalities, but was not exactly sure what was present as this was approximately 30-40 years ago. He was discharged on oral cefdinir, and started on Flomax per Urology recommendations. He will follow-up with urology clinic. Patient was counseled on return precautions including return of fever, inability to tolerate oral intake, abdominal pain. Exam Vital Signs (past 8 hours): - 01/25/20 07:00 01/25/20 11:00 Temperature 98.8 F 99.0 F Pulse Rate 100 H 98 H Respiratory Rate 15 16 Blood Pressure 100/68 96/62 Pulse Oximetry 99 98 Oxygen Delivery Method Room Air Oxygen Flow Rate 0 Narrative Exam Narrative: GENERAL APPEARANCE: Well nourished but slightly thin appearing elderly male in no acute distress. SKIN: Inspection of the skin reveals no rashes, ulcerations or petechiae. HEENT: Normocephalic atraumatic, extraocular muscles are intact, oropharynx is clear and mucous membranes are moist, neck is supple without adenopathy NECK: Supple and symmetric. There was no thyroid enlargement, and no tenderness, or masses were felt. CHEST: Normal AP diameter and normal contour without any kyphoscoliosis. LUNGS: Auscultation of the lungs revealed no wheezes, rhonchi, or rales. CARDIOVASCULAR: irregularly irregular rhythm with a normal rate, there were no murmurs, rubs, or gallops. Peripheral pulses were 2+ and symmetric. ABDOMEN: Soft and nontender with normal bowel sounds. No ascites was noted. No CVA tenderness. MUSCULOSKELETAL: There was no tenderness or effusions noted. Muscle strength and tone were normal. EXTREMITIES: No cyanosis, clubbing or edema. NEUROLOGIC: Alert and oriented x 3. Normal affect. Gait was normal. Strength is +5/5 in the Upper Extremities and Lower Extremities Bilaterally. Sensation to touch was normal. Objective Imaging CT scan - abdomen: Radiologist's impression: There is a 1.8 cm nonobstructing stone confirmed within the collecting system of the right kidney. A tiny 2 mm nonobstructing left-sided kidney stone is also seen. A prominent right renal pelvis is seen, without a cause of obstruction observed. No kezia hydronephrosis is seen on either side. Numerous prominent renal cysts are seen, without suspicious features. Labs Result Diagrams: 01/25/20 05:00 01/25/20 05:00 Labs: Laboratory Results - last 24 hr 01/24/20 01/24/20 01/24/20 15:20 15:20 15:20 WBC 12.8 H RBC 4.33 L Hgb 14.5 Hct 42.8 MCV 98.9 MCH 33.5 MCHC 33.8 RDW 13.7 Plt Count 141 L Neut % (Auto) 80.6 H Lymph % (Auto) 6.[address] [place] % (Auto) 12.8 Eos % (Auto) 0.0 L Baso % (Auto) 0.4 Neut # (Auto) 80783 H Lymph # (Auto) [address] [place] # (Auto) 1600 H Eos # (Auto) 0 Baso # (Auto) 0 Sodium 134 L Potassium 4.3 Chloride 104 Carbon Dioxide 24 BUN 22 H Creatinine 0.95 Estimated GFR > 60.0 BUN/Creatinine Ratio 23.2 H Glucose 106 Lactate 1.1 Calcium 9.1 Total Bilirubin 2.6 H Conjugated Bilirubin Unconjugated Bilirubin AST 35 ALT 20 Alkaline Phosphatase 95 Total Protein 6.9 Albumin 4.2 Globulin 2.7 Albumin/Globulin Ratio 1.6 Lipase 38 Urine Color Urine Appearance Urine pH Ur Specific [place] Urine Protein Urine Glucose (UA) Urine Ketones Urine Occult Blood Urine Nitrate Urine Bilirubin Urine Urobilinogen Ur Leukocyte Esterase Urine RBC Urine WBC Ur Squamous Epith Cells Urine Bacteria Ur Culture Indicated? COVID-19 PCR 01/24/20 01/24/20 01/25/20 16:20 17:00 05:00 WBC 14.0 H RBC 4.00 L Hgb 13.1 L Hct 39.8 L MCV 99.6 MCH 32.8 MCHC 33.0 RDW 13.5 Plt Count 121 L Neut % (Auto) 75.6 H Lymph % (Auto) 12.[address] [place] % (Auto) 11.3 Eos % (Auto) 0.2 L Baso % (Auto) 0.6 Neut # (Auto) 27815 H Lymph # (Auto) 1700 [place] # (Auto) 1600 H Eos # (Auto) 0 Baso # (Auto) 100 Sodium Potassium Chloride Carbon Dioxide BUN Creatinine Estimated GFR BUN/Creatinine Ratio Glucose Lactate Calcium Total Bilirubin Conjugated Bilirubin Unconjugated Bilirubin AST ALT Alkaline Phosphatase Total Protein Albumin Globulin Albumin/Globulin Ratio Lipase Urine Color Yellow Urine Appearance Clear Urine pH 6.0 Ur Specific [place] 1.020 Urine Protein 1+ H Urine Glucose (UA) Negative Urine Ketones Trace H Urine Occult Blood 3+ H Urine Nitrate Positive Urine Bilirubin Negative Urine Urobilinogen 0.2 Ur Leukocyte Esterase 1+ H Urine RBC 10-30/hpf H Urine WBC 10-30/hpf H Ur Squamous Epith Cells 0-1 /hpf Urine Bacteria Many (>30) H Ur Culture Indicated? Specimen cultured COVID-19 PCR Negative 01/25/20 01/25/20 05:00 05:00 WBC RBC Hgb Hct MCV MCH MCHC RDW Plt Count Neut % (Auto) Lymph % (Auto) [place] % (Auto) Eos % (Auto) Baso % (Auto) Neut # (Auto) Lymph # (Auto) [place] # (Auto) Eos # (Auto) Baso # (Auto) Sodium 136 L Potassium 4.8 Chloride 106 Carbon Dioxide 26 BUN 21 H Creatinine 1.02 Estimated GFR > 60.0 BUN/Creatinine Ratio 20.6 Glucose 114 H Lactate Calcium 8.7 Total Bilirubin 1.3 Conjugated Bilirubin 0.0 Unconjugated Bilirubin 1.0 AST 33 ALT 18 Alkaline Phosphatase 66 Total Protein 5.9 L Albumin 3.4 L Globulin 2.5 Albumin/Globulin Ratio 1.4 Lipase Urine Color Urine Appearance Urine pH Ur Specific [place] Urine Protein Urine Glucose (UA) Urine Ketones Urine Occult Blood Urine Nitrate Urine Bilirubin Urine Urobilinogen Ur Leukocyte Esterase Urine RBC Urine WBC Ur Squamous Epith Cells Urine Bacteria Ur Culture Indicated? COVID-19 PCR Discharge Plan Discharge Plan Patient Disposition: Home Discharge comment: You were admitted to the hospital with a urinary tract infection. You're being discharged on a medication for your prostate and an antibiotic which you should take for one week. Please follow up with your primary care provider in the next 1-2 weeks to check on your symptoms as well as with the urologist, however unclear when you will be scheduled for this visit. Discharge orders & Medications Prescriptions: New tamsulosin 0.4 mg capsule 0.4 mg PO BEDTIME 30 Days Qty: 30 RF: 0 cefdinir 300 mg capsule 300 mg PO BID 7 Days Qty: 14 RF: 0 Continued Eliquis 5 mg Tablet 5 mg PO BID RF: 0 acetaminophen [Tylenol Extra Strength] 500 mg Tablet 1,000 mg PO BEDTIME RF: 0 Follow up/Referrals: Moira Roland PA-C [Primary Care Provider] - Zahira Jarquin MD [Physician] - (UTI, kidney stones, probable BPH. Consulted over the phone recommended outpatient f/u. ) Diet/Activity/Treatments Diet: Diet as Tolerated Activity: As tolerated Visit Report/Discharge Packet Instructions: Cefdinir, Tamsulosin Visit Report Forms: Patient Portal/API, Stroke Signs & Symptoms Discharge Data Primary Care Provider: Moira Roland Attending Provider: Sheree Escamilla Admit Date/Time: 01/24/20 20:02 Quality VTE Deep Vein Thrombosis/Pulmonary Embolism Present on Admission: No
--- NOTE | 2020-01-25 14:37 | PC.NURSE ---
Discharge teaching done regarding s/s of infection and when to call doctor. Teaching and education given regarding new medications and follow up appt.'s. Patient is leaving via wheelchair in a private car w/ significant other.
--- NOTE | 2020-01-25 20:56 | DI.US.S_ITS ---
PROCEDURE: US ABDOMEN COMPLETE INDICATIONS: PYELONEPHRITIS TECHNIQUE: Real-time scanning was performed of the abdominal and retroperitoneal organs, with image documentation. COMPARISON: None. FINDINGS: Liver: Liver is normal in size. Of the there is normal overall echotexture of the liver. Within the posterior right lobe, there are 2 small simple cysts seen, which measure up to 1.3 cm. Gallbladder: No findings of gallstones or sludge are seen. The gallbladder wall is not thickened, measuring 3 mm or less. No specific pericholecystic fluid is seen. The sonographic Sal[place] sign is negative. Biliary ducts: Intrahepatic bile ducts are mildly dilated, with the common hepatic duct measuring 8.5 mm. Normal is 6-7 mm or less in diameter, or 10 mm or less post-cholecystectomy. Pancreas: Visualized portions of the pancreas are sonographically normal. Spleen: Spleen is normal in size and homogeneous in echotexture. Kidneys: The right kidney is enlarged, measuring 20.5 cm. The left kidney measures 12.3 cm long. No solid masses. Numerous simple appearing cortical cysts are seen. The largest is seen on the right superiorly, measuring up to 10.6 cm. Moderate right-sided hydronephrosis is seen. Within the right renal collecting system, there is a 1.8 cm shadowing stone seen. Aorta: Visualized aorta is normal in caliber at less than 3 cm. Iliacs: Not seen, obscured by overlying bowel gas. IVC: Intrahepatic inferior vena cava is patent. Miscellaneous: No free abdominal fluid. The prevoid bladder volume is 171 cc. The postvoid bladder volume is 118 cc. IMPRESSION: Abnormal right kidney, with moderate hydronephrosis and a 1.8 cm apparent stone seen within the renal pelvis. The right kidney is enlarged. Numerous bilateral renal cysts are seen, which are larger on the right than on the left. Moderate postvoid residual, 118 cc. 2 small cysts can be seen involving the right posterior lobe of the liver, measuring up to 1.3 cm. Dictated by: Edwin Mir M.D. on 01/25/2020 at 7:55 Approved by: Edwin Mir M.D. on 01/25/2020 at 7:59
== END 2020-01-25 14:39 | disposition home or self-care (01) ==
LOC: ED 19:34 → AC 20:03
PROVIDERS: Internal Medicine; Admitting Provider Family Medicine; Emergency Provider Emergency Medicine; PCP Physician Assistant; Referring Provider Emergency Medicine; Visit Provider Family Medicine
DX: N30.00 Acute cystitis without hematuria (principal); R50.9 Fever, unspecified; N20.0 Calculus of kidney; E80.6 Other disorders of bilirubin metabolism; I48.0 Paroxysmal atrial fibrillation; Z79.01 Long term (current) use of anticoagulants; Z11.59 Encounter for screening for other viral diseases
CPT/HCPCS: 36415; 71045; 74176; 76700; 80048; 80053; 80076; 81001; 83605; 83690; 85025; 87040; 87077; 87086; 87186; 87635; 96361; 96365; 99284; G0378; J0696

== ENCOUNTER → 2020-04-15 16:11 | Outpatient (CLI) | payer MEDICARE, SELFPAY ==
[2020-01-24 20:51] VITALS: BMI 21.5
[2020-04-15 16:39] LABS: Add Manual Diff / Slide Review NO; Basophils Absolute Auto 100 /uL (0-100); Basophils Percent Auto 1.2 % (0-2); Eosinophils Absolute Auto 200 /uL (0-450); Eosinophils Percent Auto 2.8 % (2-4); Hematocrit 45.5 % (41-53); Hemoglobin 15.2 g/dL (13.5-17.5); Lymphocytes Absolute Auto 3800 /uL (1100-4500); Mean Corpuscular HGB Conc 33.5 % (30-36); Mean Corpuscular Volume 98.4 fL (80-100); Monocytes Absolute Auto 700 /uL (0-900); Monocytes Percent Auto 8.5 % (3-14); Neutrophils Absolute Auto 3600 /uL (1500-7000); Neutrophils Percent Auto 42.5 % (50-75); Platelet Count 166 X10^3/uL (150-400); Red Blood Cell Count 4.62 X10^6/uL (4.5-5.9); White Blood Cell Count 8.5 X10^3/uL (4.5-11.0)
[2020-04-15 17:12] LABS: BUN Creatinine Ratio 22.8 (6-22); Blood Urea Nitrogen 21 mg/dL (9-20); Calcium 9.1 mg/dL (8.4-10.2); Carbon Dioxide 29 mmol/L (22-32); Chloride 105 mmol/L (98-107); Cholesterol 235 mg/dL (140-199); Estimated Glomerular Filt Rate > 60.0 mL/min (>60); Glucose 119 mg/dL (80-110); HDL Cholesterol 55 mg/dL (40-60); HEMOLYSIS < 15 (0-50); LDL Cholesterol Calculated 157 mg/dL (<100); Potassium 4.4 mmol/L (3.4-5.1); Sodium 137 mmol/L (137-145); Triglycerides 117 mg/dL (35-150)
== END ==
PROVIDERS: PCP Physician Assistant; Referring Provider Internal Medicine Cardiovascular Disease; Visit Provider Internal Medicine Cardiovascular Disease
DX: E78.5 Hyperlipidemia, unspecified (principal); E87.5 Hyperkalemia; Z79.01 Long term (current) use of anticoagulants; I51.7 Cardiomegaly
CPT/HCPCS: 36415; 80048; 80061; 85025

== ENCOUNTER → 2021-06-16 10:08 | Outpatient (CLI) | payer MEDICARE, SELFPAY ==
[2020-01-24 20:51] VITALS: BMI 21.5
[2021-06-16 11:06] LABS: Add Manual Diff / Slide Review NO; Basophils Absolute Auto 0 /uL (0-100); Basophils Percent Auto 0.7 % (0-2); Eosinophils Absolute Auto 200 /uL (0-450); Eosinophils Percent Auto 3.7 % (2-4); Hematocrit 43.3 % (41-53); Hemoglobin 14.7 g/dL (13.5-17.5); Lymphocytes Absolute Auto 2400 /uL (1100-4500); Lymphocytes Percent Auto 39.6 % (25-40); Mean Corpuscular HGB Conc 33.9 % (30-36); Mean Corpuscular Hemoglobin 32.9 PG (26-34); Mean Corpuscular Volume 97.1 fL (80-100); Monocytes Absolute Auto 700 /uL (0-900); Monocytes Percent Auto 10.9 % (3-14); Neutrophils Absolute Auto 2700 /uL (1500-7000); Neutrophils Percent Auto 45.1 % (50-75); Platelet Count 146 X10^3/uL (150-400); Red Blood Cell Count 4.46 X10^6/uL (4.5-5.9); Red Cell Distribution Width 13.7 % (11.6-14.8)
[2021-06-16 12:50] LABS: BUN Creatinine Ratio 21.6 (6-22); Blood Urea Nitrogen 21 mg/dL (9-20); Calcium 9.1 mg/dL (8.4-10.2); Carbon Dioxide 31 mmol/L (22-32); Chloride 104 mmol/L (98-107); Cholesterol 173 mg/dL (140-199); Estimated Glomerular Filt Rate > 60.0 mL/min (>60); Glucose 88 mg/dL (80-110); HDL Cholesterol 52 mg/dL (40-60); HEMOLYSIS < 15 (0-50); LDL Cholesterol Calculated 104 mg/dL (<100); Potassium 4.4 mmol/L (3.4-5.1); Sodium 139 mmol/L (137-145); Triglycerides 83 mg/dL (35-150)
== END ==
PROVIDERS: PCP Physician Assistant; Referring Provider Internal Medicine Cardiovascular Disease; Visit Provider Internal Medicine Cardiovascular Disease
DX: I48.19 Other persistent atrial fibrillation (principal); E78.5 Hyperlipidemia, unspecified; Z79.01 Long term (current) use of anticoagulants
CPT/HCPCS: 36415; 80048; 80061; 85025

== ENCOUNTER → 2022-11-10 09:44 | Outpatient (CLI) | payer MEDICARE, SELFPAY ==
[2020-01-24 20:51] VITALS: BMI 21.5
[2022-11-10 10:57] LABS: Add Manual Diff / Slide Review NO; Basophils Absolute Auto 0 /uL (0-100); Basophils Percent Auto 0.8 % (0-2); Eosinophils Absolute Auto 300 /uL (0-450); Hematocrit 43.6 % (41-53); Hemoglobin 14.7 g/dL (13.5-17.5); Lymphocytes Absolute Auto 2400 /uL (1100-4500); Lymphocytes Percent Auto 38.4 % (25-40); Mean Corpuscular HGB Conc 33.7 % (30-36); Mean Corpuscular Hemoglobin 32.7 PG (26-34); Monocytes Absolute Auto 700 /uL (0-900); Monocytes Percent Auto 10.7 % (3-14); Neutrophils Absolute Auto 2900 /uL (1500-7000); Neutrophils Percent Auto 46.1 % (50-75); Platelet Count 149 X10^3/uL (150-400); Red Blood Cell Count 4.49 X10^6/uL (4.5-5.9); Red Cell Distribution Width 13.9 % (11.6-14.8); White Blood Cell Count 6.3 X10^3/uL (4.5-11.0)
[2022-11-10 11:23] LABS: BUN Creatinine Ratio 18.1 (6-22); Blood Urea Nitrogen 17 mg/dL (9-20); Calcium 8.8 mg/dL (8.4-10.2); Carbon Dioxide 28 mmol/L (22-32); Chloride 103 mmol/L (98-107); Cholesterol 166 mg/dL (140-199); Estimated Glomerular Filt Rate > 60 mL/min (>60); Glucose 84 mg/dL (80-110); HDL Cholesterol 51 mg/dL (40-60); HEMOLYSIS < 15 (0-50); LDL Cholesterol Calculated 102 mg/dL (<100); Potassium 4.3 mmol/L (3.4-5.1); Sodium 137 mmol/L (137-145); Triglycerides 63 mg/dL (35-150)
== END ==
PROVIDERS: PCP Physician Assistant; Referring Provider Internal Medicine Cardiovascular Disease; Visit Provider Internal Medicine Cardiovascular Disease
DX: E78.5 Hyperlipidemia, unspecified (principal); I51.7 Cardiomegaly; Z79.01 Long term (current) use of anticoagulants
CPT/HCPCS: 36415; 80048; 80061; 85025

== ENCOUNTER → 2023-08-07 09:47 | Outpatient (CLI) | payer MEDICARE, SELFPAY ==
[2020-01-24 20:51] VITALS: BMI 21.5
[2023-08-07 10:55] LABS: Add Manual Diff / Slide Review NO; Basophils Absolute Auto 100 /uL (0-100); Basophils Percent Auto 0.9 % (0-2); Eosinophils Absolute Auto 200 /uL (0-450); Eosinophils Percent Auto 3.1 % (2-4); Hematocrit 44.2 % (41-53); Hemoglobin 14.8 g/dL (13.5-17.5); Lymphocytes Absolute Auto 2200 /uL (1100-4500); Lymphocytes Percent Auto 29.4 % (25-40); Mean Corpuscular HGB Conc 33.6 % (30-36); Mean Corpuscular Hemoglobin 32.8 PG (26-34); Mean Corpuscular Volume 97.6 fL (80-100); Monocytes Absolute Auto 800 /uL (0-900); Monocytes Percent Auto 11.1 % (3-14); Neutrophils Absolute Auto 4100 /uL (1500-7000); Neutrophils Percent Auto 55.5 % (50-75); Platelet Count 142 X10^3/uL (150-400); Red Blood Cell Count 4.53 X10^6/uL (4.5-5.9); Red Cell Distribution Width 13.8 % (11.6-14.8); White Blood Cell Count 7.4 X10^3/uL (4.5-11.0)
[2023-08-07 11:21] LABS: Blood Urea Nitrogen 19 mg/dL (9-20); Carbon Dioxide 29 mmol/L (22-32); Chloride 108 mmol/L (98-107); Cholesterol 168 mg/dL (140-199); Estimated Glomerular Filt Rate > 60 mL/min (>60); Glucose 88 mg/dL (80-110); HDL Cholesterol 50 mg/dL (40-60); HEMOLYSIS < 15 (0-50); LDL Cholesterol Calculated 105 mg/dL (<100); Potassium 4.3 mmol/L (3.4-5.1); Sodium 140 mmol/L (137-145); Triglycerides 64 mg/dL (35-150)
== END ==
PROVIDERS: PCP Physician Assistant; Referring Provider Internal Medicine Cardiovascular Disease; Visit Provider Internal Medicine Cardiovascular Disease
DX: E78.5 Hyperlipidemia, unspecified (principal); Z79.01 Long term (current) use of anticoagulants; I48.11 Longstanding persistent atrial fibrillation
CPT/HCPCS: 36415; 80048; 80061; 85025

== ENCOUNTER → 2023-10-26 11:57 | Outpatient (CLI) | payer MEDICARE, SELFPAY ==
[2020-01-24 20:51] VITALS: BMI 21.5
[2023-10-26 14:07] LABS: Prostate Specific Antigen 0.744 ng/mL (0.10-4.00)
== END ==
PROVIDERS: PCP Physician Assistant; Referring Provider Family Medicine; Visit Provider Family Medicine
DX: N40.1 Benign prostatic hyperplasia with lower urinary tract symptoms (principal)
CPT/HCPCS: 36415; 84153

== ENCOUNTER → 2024-09-17 15:10 | Outpatient (CLI) | payer MEDICARE, SELFPAY ==
[2020-01-24 20:51] VITALS: BMI 21.5
[2024-09-17 15:47] LABS: Hematocrit 42.7 % (41-53); Hemoglobin 14.4 g/dL (13.5-17.5); Mean Corpuscular HGB Conc 33.6 % (30-36); Mean Corpuscular Hemoglobin 33.3 PG (26-34); Mean Corpuscular Volume 98.9 fL (80-100); Platelet Count 148 X10^3/uL (150-400); Red Blood Cell Count 4.31 X10^6/uL (4.5-5.9); Red Cell Distribution Width 13.9 % (11.6-14.8); White Blood Cell Count 5.9 X10^3/uL (4.5-11.0)
[2024-09-17 16:11] LABS: BUN Creatinine Ratio 20.2 (6-22); Blood Urea Nitrogen 20 mg/dL (9-20); Calcium 9.1 mg/dL (8.4-10.2); Carbon Dioxide 26 mmol/L (22-32); Chloride 104 mmol/L (98-107); Cholesterol 172 mg/dL (140-199); Estimated Glomerular Filt Rate > 60 mL/min (>60); Glucose 93 mg/dL (70-99); HDL Cholesterol 54 mg/dL (40-60); HEMOLYSIS < 15 (0-50); LDL Cholesterol Calculated 105 mg/dL (<100); Potassium 4.6 mmol/L (3.4-5.1); Sodium 136 mmol/L (137-145); Triglycerides 66 mg/dL (35-150)
== END ==
LOC: LAB 15:13
PROVIDERS: PCP Physician Assistant; Referring Provider Internal Medicine Cardiovascular Disease; Visit Provider Internal Medicine Cardiovascular Disease
DX: E78.5 Hyperlipidemia, unspecified (principal); Z79.01 Long term (current) use of anticoagulants; I48.11 Longstanding persistent atrial fibrillation
CPT/HCPCS: 36415; 80048; 80061; 85027

== ENCOUNTER → 2025-04-02 14:46 | Outpatient (CLI) | payer MEDICARE, SELFPAY ==
[2020-01-24 20:51] VITALS: BMI 21.5
== END ==
LOC: LAB 14:48
PROVIDERS: PCP Nurse Practitioner Family; Visit Provider Nurse Practitioner Family
DX: R31.9 Hematuria, unspecified (principal)
CPT/HCPCS: 87086